=== PATIENT | female | born 1985 | race Caucasian/White ===

== ENCOUNTER → 2016-10-16 | Outpatient (CLI) | payer OTHER ==
--- NOTE | 2016-10-16 11:13 | MM ---
Reason for exam: clinical finding. Baseline mammogram. History: Taking hormonal contraceptives beginning at age 19. Physical Findings: Nurse Summary: 0.5cm nodule in the left breast at 1 o'clock (nurse maria del rosario). [facility] Diagnostic Mammo w CAD [place] Bilateral CC and MLO view(s) were taken. The breast tissue is heterogeneously dense. This may lower the sensitivity of mammography. There is no discrete abnormality including BB at palpable. These results were verbally communicated with the patient and result sheet given to the patient on 10/16/16. ASSESSMENT: Incomplete: need additional imaging evaluation, BI-RAD 0 RECOMMENDATION: Ultrasound of the left breast.
--- NOTE | 2016-10-16 11:18 | USB ---
Reason for exam: additional evaluation requested from abnormal screening. History: Taking hormonal contraceptives beginning at age 19. US Breast Workup Limited LT Left breast ultrasound demonstrates no cystic or solid lesion seen. No abnormality at palpable. These results were verbally communicated with the patient and result sheet given to the patient on 10/16/16. ASSESSMENT: Negative, BI-RAD 1 RECOMMENDATION: Routine screening mammogram of both breasts at age 34. Manage patient on a clinical basis with regard to patient's palpable abnormality.
== END | disposition home or self-care (01) ==
LOC: RADMAMWWP 09:34
PROVIDERS: ATTEND Family Medicine
DX: N63 Unspecified lump in breast (principal); R92.8 Other abnormal and inconclusive findings on diagnostic imaging of breast
CPT/HCPCS: 76642; G0204

== ENCOUNTER → 2019-07-13 | Outpatient (CLI) | payer BC ==
--- NOTE | 2019-07-14 03:58 | US ---
EXAMINATION TYPE: US transvaginal DATE OF EXAM: 07/13/2019 COMPARISON: US CLINICAL HISTORY: 34-year-old female N92.1 Excessive and frequent menstruation with irregular cycles; patient stated had normal LMP 2 months ago then intermittent vaginal bleeding ever since; taking ora l contraceptives x 9 months; ; C - section x 1. TECHNIQUE: Transvaginal sonographic images were acquired per patient's order. Date of LMP: 2 months ago FINDINGS: EXAM MEASUREMENTS: Uterus: 8.3 x 5.4 x 4.2 cm Endometrial Stripe: 0.8 cm Right Ovary: not seen Left Ovary: 2.7 x 1.9 x 1.7 cm 1. Uterus: anteverted, couple of small nabothian cysts seen in cervix, largest measuring 0.4 x 0.4 x 0.4cm; multiple uterine fibroids noted in mid and upper myometrium with largest, intramural located in the posterior fundus measuring 1.4 x 1.3 x 0.9cm. Some echogenicity along the anterior lower uteri ne segment suggestive of the scar. 2. Endometrium: 8 mm thick. 3. Right Ovary: not seen 4. Left Ovary: wnl 5. Bilateral Adnexa: wnl 6. Posterior cul-de-sac: wnl IMPRESSION: 1. Heterogeneous, fibroid uterus. Small fibroids are present, largest measuring 1.4 cm in the posteri or fundus. 2. Endometrial stripe measures 8 mm thick. 3. Right ovary could not be visualized.
== END | disposition home or self-care (01) ==
LOC: RADUSWWP 16:15
PROVIDERS: ATTEND Family Medicine
DX: D25.1 Intramural leiomyoma of uterus (principal)
CPT/HCPCS: 76830

== ENCOUNTER → 2019-10-26 | Outpatient (CLI) | payer BC | END | disposition home or self-care (01) | LOC: LABWHC1 14:24 | PROVIDERS: ATTEND Nurse Practitioner Family | DX: U07.1 COVID-19 (principal) ==